=== PATIENT | female | born 1995 | race African-American/Black ===

== ENCOUNTER 2024-10-05 10:17 | Emergency (ER) | payer SELFPAY ==
[~2024-10-05] VITALS: Ht 170.2 cm; Wt 50.0 kg
[2024-10-05 10:22] VITALS: BP 107/69; PULSE 98; RESP 18; TEMP 98.4; O2SAT 100
== END 2024-10-05 15:47 | disposition left against medical advice (07) ==
LOC: ER 10:55
DX: R51.9 Headache, unspecified (principal); Z53.21 Procedure and treatment not carried out due to patient leaving prior to being seen by health care provider